=== PATIENT | female | born 1950 ===

== ENCOUNTER → 2021-09-17 | Day surgery (SDC) | payer OTHER ==
[~2021-09-17] VITALS: Ht 162.6 cm; Wt 65.8 kg
[~2021-09-17] MED LIST: BACTRIM DS TAB1 EACH PO; DAFLONEX-XL 11300 MG PO; IBU600 MG PO; LOSARTAN POTASS50 MG PO; METFORMIN HCL500 M3 PO; PROTONIX20 MG PO; RESTORIL15 MG PO; ZOCOR40 MG PO
== END | disposition home or self-care (01) ==
LOC: ADM 09-12 10:45 → CIR.AMB 09:00
PROVIDERS: ATTEND Obstetrics & Gynecology Gynecology
DX: N81.10 Cystocele, unspecified (principal); Z20.822 Contact with and (suspected) exposure to COVID-19; I10 Essential (primary) hypertension; Z87.891 Personal history of nicotine dependence; E11.9 Type 2 diabetes mellitus without complications; M19.90 Unspecified osteoarthritis, unspecified site; G62.9 Polyneuropathy, unspecified; E78.5 Hyperlipidemia, unspecified; Z79.84 Long term (current) use of oral hypoglycemic drugs